=== PATIENT | male | born 1980 | race American Indian/Alaskan Native ===

== ENCOUNTER 2017-12-13 05:45 | Emergency (ER) | payer MEDICAID ==
[2017-12-13] MEDS ORDERED: ATIVAN ONE (06:21)
[2017-12-13] MEDS ORDERED: KEPPRA 1,000 MG/NS 0.75% 100ML 1,000 MG/100 ML BAG IV ONE ×2 (06:22→07:39)
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
[2017-12-13 08:31] LABS: Bilirubin,Urine SM (Negative); Blood,Urine NEG (Negative); Color,Urine Yellow (Yellow); Mucus,Urine 3+ /HPF
[2017-12-13 08:32] LABS: Basophils % (Auto) 0.2 % (0.0-1.8); Eosinophils # (Auto) 0.2 K/mm3 (0.0-0.4); Eosinophils % (Auto) 2.8 % (0.0-4.3); Hematocrit 41.3 % (35.5-45.6); Hemoglobin 13.3 gm/dl (11.8-15.2); Lymphocytes # (Auto) 1.6 K/mm3 (1.2-5.4); Mean Corpuscular HGB Conc 32 % (32-34); Mean Corpuscular Hemoglobin 27 pg (28-32); Mean Corpuscular Volume 83 fl (84-94); Monocytes # (Auto) 0.5 K/mm3 (0.0-0.8); Monocytes % (Auto) 8.8 % (0.0-7.3); Platelet Count 199 K/mm3 (140-440); Red Blood Count 4.96 M/mm3 (3.65-5.03); Red Cell Distribution Width 15.3 % (13.2-15.2)
[2017-12-13 08:36] LABS: Ictotest,Urine Negative (Negative)
[2017-12-13 09:16] LABS: Alanine Aminotransferase 15 units/L (7-56); Albumin 3.9 g/dL (3.9-5); BUN/Creatinine Ratio 17; Blood Urea Nitrogen 15 mg/dL (9-20); Calcium 9.3 mg/dL (8.4-10.2)
[2017-12-13 09:17] LABS: Amphetamine Screen,Urine PRESUMPTIVE NEGATIVE; Benzodiazepines Screen,Urine PRESUMPTIVE NEGATIVE; Cannabinoid Screen,Urine PRESUMPTIVE POSITIVE; Cocaine Screen,Urine PRESUMPTIVE POSITIVE; Methadone Screen,Urine PRESUMPTIVE NEGATIVE; Opiate Screen,Urine PRESUMPTIVE NEGATIVE
--- NOTE | 2017-12-13 09:17 | Cat Scan Report ---
FINAL REPORT EXAM: CT HEAD WO CONTRAST HISTORY: seizures TECHNIQUE: CT imaging acquired through the head without intravenous contrast. Transaxial reformations are provided. PRIORS: None. FINDINGS: Exam is partially compromised by skull associated streak artifact. The ventricles, cisterns and sulci are normal. No intraparenchymal or extra-axial mass, hemorrhage, or mass effect. [place]allos and white-matter differentiation is normal. Normal spherical shape of the globes. Paranasal sinuses and mastoid air cells are clear. No skull or facial fracture visualized. IMPRESSION: No acute intracranial abnormality. Consider follow-up MRI if not previously performed.
[2017-12-13] MEDS ORDERED: CEREBYX 1,000 MG.PE in NACL 0.9% 100 ML IV ONE (11:30)
[2017-12-13] MEDS ORDERED: TYLENOL ONE (14:03)
[2017-12-13 14:39] VITALS: BP 99/65
--- NOTE | 2017-12-13 15:37 | XRay Report ---
RIGHT KNEE, 3 views: History: Right knee pain. The bony architecture is intact without evidence of fracture or dislocation. No significant soft tissue abnormality is seen. IMPRESSION: Normal right knee.
== END 2017-12-13 15:07 | disposition home or self-care (01) ==
LOC: ED 05:45
DX: R56.9 Unspecified convulsions (principal); J45.909 Unspecified asthma, uncomplicated; F17.210 Nicotine dependence, cigarettes, uncomplicated; F14.10 Cocaine abuse, uncomplicated; F12.10 Cannabis abuse, uncomplicated; Z79.899 Other long term (current) drug therapy
CPT/HCPCS: 36415; 70450; 73562; 80053; 80185; 80307; 81001; 85025; 93005; 93010; 96365; 99285; G0480; J1953; J2060; Q2009; 80320

== ENCOUNTER 2018-12-17 04:41 | Emergency (ER) | payer SELFPAY | END 2018-12-17 04:58 | disposition left against medical advice (07) | LOC: ED 04:41 ==

== ENCOUNTER 2019-01-03 06:50 | Emergency (ER) | payer MEDICAID, MEDICARE ==
[2019-01-03] MEDS ORDERED: KEPPRA 1,000 MG/NS 0.75% 100ML 1,000 MG/100 ML BAG IV ONE (07:44)
[2019-01-03 08:02] LABS: Basophils # (Auto) 0.1 K/mm3 (0.0-0.1); Basophils % (Auto) 0.7 % (0.0-1.8); Eosinophils # (Auto) 0.3 K/mm3 (0.0-0.4); Eosinophils % (Auto) 3.8 % (0.0-4.3); Hematocrit 38.4 % (35.5-45.6); Hemoglobin 12.9 gm/dl (11.8-15.2); Lymphocytes # (Auto) 2.8 K/mm3 (1.2-5.4); Lymphocytes % (Auto) 31.8 % (13.4-35.0); Mean Corpuscular HGB Conc 34 % (32-34); Mean Corpuscular Volume 84 fl (84-94); Monocytes # (Auto) 0.8 K/mm3 (0.0-0.8); Monocytes % (Auto) 9.4 % (0.0-7.3); Platelet Count 230 K/mm3 (140-440); Red Blood Count 4.58 M/mm3 (3.65-5.03); Red Cell Distribution Width 15.3 % (13.2-15.2)
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
[2019-01-03 08:18] LABS: BUN/Creatinine Ratio 19; Blood Urea Nitrogen 19 mg/dL (9-20); Calcium 9.1 mg/dL (8.4-10.2); Hemolysis Index 23
--- NOTE | 2019-01-03 08:40 | Cat Scan Report ---
CT HEAD WITHOUT CONTRAST INDICATION: Seizure, headache. Head injury. COMPARISON: 12/13/2017 CT. FINDINGS: Noncontrast head CT again demonstrates normal ventricles and sulci without acute or recent infarct, hemorrhage, mass effect or midline shift. No abnormal extra-axial fluid collections. Posterior fossa structures and basilar cisterns within normal limits. Symmetric imaged eye globes. Leftward nasal septal bowing with a prominent 5 mm leftward nasal septal spur touching the lateral nasal wall noted as on axial series 3, image 3. Mild to moderate sinus disease now remains, though overall improved. Mild bilateral sphenoid and moderate bilateral ethmoid and right frontal sinus mucosal thickening noted. Approximately 1.7 cm right maxillary sinus polyp/mucus retention cyst also partially imaged. Clear mastoid air cells. Some streak artifact from right earring incidentally seen. Dental disease noted with few missing teeth. Mandibular plate and screw repair also seen. Normal calvarium and scalp. CONCLUSION: No acute intracranial CT abnormality with mild to moderate sinusitis noted as also leftward nasal septal deviation/spur, as described. ENT correlation may be obtained, if warranted. Thank you for the opportunity to participate in this patient's care.
[2019-01-03] MEDS ORDERED: ROCEPHIN/NS 1 GM/50 ML 1 GM/50 ML BAG IV ONE (09:39)
[2019-01-03] MEDS ORDERED: SOLU-Medrol IV ONE (09:39)
[2019-01-03] MEDS ORDERED: DILANTIN IV ONE (09:39)
[2019-01-03 11:20] VITALS: BP 121/70
== END 2019-01-03 11:58 | disposition home or self-care (01) ==
LOC: ED 06:50
DX: S09.90XA Unspecified injury of head, initial encounter (principal); S09.93XA Unspecified injury of face, initial encounter; J01.90 Acute sinusitis, unspecified; G44.319 Acute post-traumatic headache, not intractable; Z91.14 Patient's other noncompliance with medication regimen; J45.909 Unspecified asthma, uncomplicated; F17.200 Nicotine dependence, unspecified, uncomplicated; W18.30XA Fall on same level, unspecified, initial encounter; Y93.89 Activity, other specified; Y92.89 Other specified places as the place of occurrence of the external cause; Y99.8 Other external cause status
CPT/HCPCS: 36415; 70450; 80048; 85025; 96365; 96375; 99284; J0696; J1165; J1953; J2930

== ENCOUNTER 2019-03-17 11:13 | Emergency (ER) | payer MEDICAID ==
[2019-03-17] MEDS ORDERED: KEPPRA 1,000 MG/NS 0.75% 100ML 1,000 MG/100 ML BAG IV ONE (12:22)
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
[2019-03-17 12:46] LABS: Basophils % (Auto) 0.6 % (0.0-1.8); Eosinophils # (Auto) 0.1 K/mm3 (0.0-0.4); Eosinophils % (Auto) 1.2 % (0.0-4.3); Hematocrit 40.5 % (35.5-45.6); Hemoglobin 13.3 gm/dl (11.8-15.2); Lymphocytes # (Auto) 1.6 K/mm3 (1.2-5.4); Lymphocytes % (Auto) 23.1 % (13.4-35.0); Mean Corpuscular HGB Conc 33 % (32-34); Mean Corpuscular Volume 83 fl (84-94); Monocytes # (Auto) 0.7 K/mm3 (0.0-0.8); Monocytes % (Auto) 9.8 % (0.0-7.3); Platelet Count 178 K/mm3 (140-440); Red Blood Count 4.85 M/mm3 (3.65-5.03); Red Cell Distribution Width 15.3 % (13.2-15.2)
[2019-03-17 12:50] LABS: BUN/Creatinine Ratio 14; Blood Urea Nitrogen 14 mg/dL (9-20); Calcium 9.1 mg/dL (8.4-10.2); Hemolysis Index 18
[2019-03-17 18:38] VITALS: BP 124/73
== END 2019-03-17 16:10 | disposition left against medical advice (07) ==
LOC: ED 11:13
DX: G40.909 Epilepsy, unspecified, not intractable, without status epilepticus (principal); J45.909 Unspecified asthma, uncomplicated; F17.200 Nicotine dependence, unspecified, uncomplicated; F14.10 Cocaine abuse, uncomplicated
CPT/HCPCS: 36415; 80048; 85025; 96374; 99284; J1953

== ENCOUNTER 2021-11-30 02:25 | Emergency (ER) | payer SELFPAY ==
[2021-11-30] MEDS ORDERED: PHENYTOIN 500 MG in SODIUM CHLORIDE 0.9% 250ML 250 ML IV ONE (02:52)
[2021-11-30] MEDS ORDERED: levETIRAcetam 500 MG in DEXTROSE 5% IN WATER 100 ML IV ONE (02:53)
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
[2021-11-30] MEDS ORDERED: levETIRAcetam 1000 MG/NS 0.75% 1,000 MG/100 ML BAG IV ONE (03:10)
[2021-11-30 04:13] VITALS: BP 126/81
[2021-11-30 04:37] LABS: BUN/Creatinine Ratio 16; Blood Urea Nitrogen 14 mg/dL (9-20); Calcium 8.7 mg/dL (8.4-10.2); Hemolysis Index 5
== END 2021-11-30 06:35 | disposition home or self-care (01) ==
LOC: ED 02:25
DX: G40.909 Epilepsy, unspecified, not intractable, without status epilepticus (principal); F14.10 Cocaine abuse, uncomplicated; F17.200 Nicotine dependence, unspecified, uncomplicated; I10 Essential (primary) hypertension
CPT/HCPCS: 36415; 80048; 80177; 80184; 96374; 99284; J1953; J7060; J1165; J7050

== ENCOUNTER 2022-02-08 13:04 | Emergency (ER) | payer SELFPAY ==
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
[2022-02-09 08:11] LABS: Bilirubin,Urine NEG (Negative); Blood,Urine NEG (Negative); Color,Urine Yellow (Yellow); Mucus,Urine 1+ /HPF; Protein,Urine <15 mg/dL mg/dL (Negative)
[2022-02-09 08:20] LABS: Amphetamine Screen,Urine Negative; Benzodiazepines Screen,Urine Negative; Cannabinoid Screen,Urine Negative; Methadone Screen,Urine Negative; Opiate Screen,Urine Negative
[2022-02-09 08:32] LABS: Cocaine Screen,Urine Positive
[2022-02-09 09:22] VITALS: BP 116/71
--- NOTE | 2022-02-09 10:20 | Consultation ---
History of Present Illness - Reason for Consult Consult date: 02/09/22 Reason for consult: threats - History of Present Psychiatric Illness The patient was seen today. He apparently made some threats to staff to hurt someone if not seen. During my evaluation of this patient, he is calm, cooperative and polite. When asking what brought him to the hospital, he laughs and replies "high on cocaine." He says "I feel fine now, was just high." The patient says "I'm ready to quit now. I need some resources to help me." He denies having any psych history or ever being on any psych meds. The patient denies SI/HI. He also denies hallucinations of any kind. He says he has support, but doesn't want to let his girlfriend know about his cocaine habit. PAST PSYCHIATRIC HISTORY Diagnoses: Denies Suicide attempts or Self-harm behavior: denies Prior psychiatric hospitalizations: Denies Substance Abuse history: Cocaine Previous psychiatric medications tried: Denies Outpatient treatment: Denies PAST MEDICAL HISTORY: None reported Family Psychiatric History: None reported or documented SOCIAL HISTORY Marital Status: Single Living Arrangements: Lives with someone Employment Status: Employed Access to guns/weapons: Denies Education: History of Abuse: Denies Legal History: Unknown REVIEW OF SYSTEMS Constitutional: Negative for weight loss ENT: Negative for stridor Respiratory: Negative for cough or hemoptysis All other systems reviewed and are negative MENTAL STATUS EXAMINATION General Appearance and Behavior: Age appropriate, good hygiene, wearing appropriate clothes, good eye contact, calm, cooperative, polite Cooperation: Participating/engaged, but Guarded Psychomotor Behavior: Psychomotor normal Mood: alright Affect and affective range: congruent with stated mood Thought Process: goal directed Thought Content: None Speech: Normal tone and pace Suicidal Ideation: Denies Homicidal Ideation: Denies Hallucinations: Denies Delusions: None elicited Impulse Control: Normal Insight and Judgment: Normal insight and judgment Memory: Normal Attention: attentive Orientation: Alert, oriented Assessment and Plan Cocaine Dependence with Substance Induced Mood Disorder Treatment Plan d/c 1013 No scripts at this time Medical: per primary Sitter: Defer to primary Disposition: Do not recommend acute psychiatric inpatient treatment The supervisor frame assembly to give all necessary resources and drug rehab The patient to abstain from all illicit substance use He is to follow up with outpatient psych in 7 to 14 days upon discharge Will sign off. Thanks Case staffed with Dr. Kent Medications and Allergies Allergies Allergy/AdvReac Type Severity Reaction Status Date / Time ibuprofen Allergy Swelling Verified 11/16/21 08:22 Penicillins Allergy Swelling Verified 11/16/21 08:22 Home Medications Medication Instructions Recorded Confirmed Last Taken Type AtorvaSTATin [Lipitor] 40 mg PO QHS #30 tablet 11/16/21 Unknown Rx Clopidogrel [Plavix] 75 mg PO QDAY #30 tablet 11/16/21 Unknown Rx Nicotine [Habitrol] 14 mg TD QDAY #14 patch 11/16/21 Unknown Rx PHENobarbitaL [PHENobarbital] 32.4 mg PO BID 30 Days #60 tablet 11/17/21 Unknown Rx levETIRAcetam [Keppra TAB] 1,000 mg PO BID 30 Days #120 tablet 11/17/21 Unknown Rx Mental Status Exam - Vital signs Last Vital Signs Temp 98.3 F 02/09/22 09:21 Pulse 66 02/09/22 09:21 Resp 18 02/09/22 09:21 BP 116/71 02/09/22 09:21 Pulse Ox 97 02/09/22 09:22 Results All other labs normal.
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
--- NOTE | 2022-02-11 09:53 | Progress Note ---
Subjective - Reason for Consult Consult date: 02/11/22 Reason for consult: OD - Chief Complaint Chief complaint: This patient was seen and cleared a couple of days ago. He presents back to the ER after he "passed out" according to the patient. He says his girlfriend called the ambulance after she could not wake him up. The patient is calm, cooperative and pleasant. He says "it's the seroquel and the cocaine. That knocks me out. I don't want no more." The patient then states "I told you, I was getting high." The patient admits to a cocaine habit. He says "look, I'm going back to [place]. Do won't see me in this ER again. I'm going back, and I'm quitting that drug." The patient denies SI/HI. He says "I don't want to, and I'm not going to hurt myself. I got kids to live for." He denies hallucinations of any kind. This patient is clear from psych stand point. REVIEW OF SYSTEMS Constitutional: Negative for weight loss ENT: Negative for stridor Respiratory: Negative for cough or hemoptysis All other systems reviewed and are negative MENTAL STATUS EXAMINATION General Appearance and Behavior: Age appropriate, good hygiene, wearing appropriate clothes, good eye contact, calm, cooperative, polite Cooperation: Participating/engaged, but Guarded Psychomotor Behavior: Psychomotor normal Mood: good Affect and affective range: congruent with stated mood Thought Process: goal directed Thought Content: None Speech: Normal tone and pace Suicidal Ideation: Denies Homicidal Ideation: Denies Hallucinations: Denies Delusions: None elicited Impulse Control: Normal Insight and Judgment: Normal insight and judgment Memory: Normal Attention: attentive Orientation: Alert, oriented Assessment and Plan Cocaine Dependence with Substance Induced Mood Disorder Treatment Plan No scripts at this time Medical: per primary Sitter: Defer to primary Disposition: Do not recommend acute psychiatric inpatient treatment The yoga instructor to give all necessary resources and drug rehab The patient to abstain from all illicit substance use He is to follow up with outpatient psych in 7 to 14 days upon discharge Will sign off. Thanks Case staffed with Dr. Kent Mental Status Exam - Vital signs Last Vital Signs Temp 98.3 F 02/09/22 09:21 Pulse 66 02/09/22 09:21 Resp 18 02/09/22 09:21 BP 116/71 02/09/22 09:21 Pulse Ox 97 02/09/22 09:22
== END 2022-02-09 12:12 | disposition home or self-care (01) ==
LOC: ED 13:04
DX: R45.850 Homicidal ideations (principal); F14.10 Cocaine abuse, uncomplicated; I10 Essential (primary) hypertension; J45.909 Unspecified asthma, uncomplicated; F17.200 Nicotine dependence, unspecified, uncomplicated; Z88.0 Allergy status to penicillin; Z88.6 Allergy status to analgesic agent; Z79.899 Other long term (current) drug therapy
CPT/HCPCS: 80307; 81001; 99284

== ENCOUNTER 2022-02-10 13:49 | Emergency (ER) | payer SELFPAY ==
[2022-02-10] MEDS ORDERED: SODIUM CHLORIDE 0.9% 1000 ML 1,000 ML IV ONE (14:06)
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
[2022-02-10 15:28] LABS: Alanine Aminotransferase 13 units/L (7-56); BUN/Creatinine Ratio 10; Blood Urea Nitrogen 9 mg/dL (9-20); Calcium 9.2 mg/dL (8.4-10.2); Hemolysis Index 32
[2022-02-10 15:29] LABS: Basophils # (Auto) 0.1 K/mm3 (0.0-0.1); Eosinophils # (Auto) 0.4 K/mm3 (0.0-0.4); Eosinophils % (Auto) 6.6 % (0.0-4.3); Hematocrit 39.3 % (35.5-45.6); Hemoglobin 12.6 gm/dl (11.8-15.2); Lymphocytes # (Auto) 1.8 K/mm3 (1.2-5.4); Lymphocytes % (Auto) 31.1 % (13.4-35.0); Mean Corpuscular HGB Conc 32 % (32-34); Mean Corpuscular Volume 79 fl (84-94); Monocytes # (Auto) 0.5 K/mm3 (0.0-0.8); Monocytes % (Auto) 9.3 % (0.0-7.3); Platelet Count 229 K/mm3 (140-440); Red Cell Distribution Width 18.1 % (13.2-15.2)
[2022-02-10 18:29] LABS: Amphetamine Screen,Urine Negative; Benzodiazepines Screen,Urine Negative; Cannabinoid Screen,Urine Negative; Methadone Screen,Urine Negative; Opiate Screen,Urine Negative
[2022-02-10 18:38] LABS: Bilirubin,Urine NEG (Negative); Blood,Urine NEG (Negative); Color,Urine Yellow (Yellow); Mucus,Urine 1+ /HPF; Protein,Urine <15 mg/dL mg/dL (Negative)
[2022-02-10 18:45] LABS: Cocaine Screen,Urine Positive
[2022-02-11 11:09] VITALS: BP 120/70
--- NOTE | 2022-02-12 16:54 | Electrocardiograph Report ---
[facility] Test Date: 2022-02-10 Test Time: 14:38:22 Pat Name: MARCIE GONSALVES Department: Room: Gender: M [employer]: NURSE : 1980 Requested By: PAULA ANN Order Number: [id number] Reading MD: Vadim Dixon Measurements Intervals [place] Rate: 57 P: 62 LA: 143 QRS: 53 QRSD: 87 T: 26 QT: 404 QTc: 392 Interpretive Statements Sinus bradycardia Compared to ECG 11/15/2021 08:53:42 No significant change Electronically Signed On 02-12-2022 16:54:44 EDT by Vadim Dixon
== END 2022-02-11 12:00 | disposition home or self-care (01) ==
LOC: ED 13:49 → EEVIPCON 13:49 → ED 02-11 12:00
DX: Z04.6 Encounter for general psychiatric examination, requested by authority (principal); T43.592A Poisoning by other antipsychotics and neuroleptics, intentional self-harm, initial encounter; I10 Essential (primary) hypertension; Z20.822 Contact with and (suspected) exposure to COVID-19; J45.909 Unspecified asthma, uncomplicated; E78.00 Pure hypercholesterolemia, unspecified; F17.210 Nicotine dependence, cigarettes, uncomplicated; F14.10 Cocaine abuse, uncomplicated; Z72.89 Other problems related to lifestyle; Z88.6 Allergy status to analgesic agent; Z88.0 Allergy status to penicillin; Y92.89 Other specified places as the place of occurrence of the external cause
CPT/HCPCS: 36415; 80053; 80184; 80307; 81001; 83735; 85025; 93005; 99284; U0003; 80320; G0480

== ENCOUNTER 2022-02-26 03:44 | Emergency (ER) | payer SELFPAY ==
[2022-02-26 03:49] VITALS: BP 132/80
== END 2022-02-26 09:49 | disposition left against medical advice (07) ==
LOC: ED 03:44
DX: J11.1 Influenza due to unidentified influenza virus with other respiratory manifestations (principal); Z53.21 Procedure and treatment not carried out due to patient leaving prior to being seen by health care provider